=== PATIENT | female | born 1975 | race Caucasian/White ===

== ENCOUNTER → 2019-07-18 | Outpatient (CLI) | payer BC ==
[2005-09-11 07:12] VITALS: PULSE 60; TEMP 97.8
== END ==
LOC: MC.RAD 11:23
DX: Z12.31 Encounter for screening mammogram for malignant neoplasm of breast (principal)

== ENCOUNTER → 2020-07-19 | Outpatient (CLI) | payer BC ==
[2005-09-11 07:12] VITALS: PULSE 60; TEMP 97.8
== END ==
LOC: MC.RAD 08:26
DX: Z12.31 Encounter for screening mammogram for malignant neoplasm of breast (principal)